=== PATIENT | female | born 1995 | race African-American/Black ===

== ENCOUNTER 2017-05-10 08:56 | Emergency (ER) | payer BC ==
[~2017-05-10] VITALS: Ht 170.2 cm; Wt 68.0 kg
[2017-05-10 08:56] VITALS: BP_SYST 148
[2017-05-10] MEDS ORDERED: KETOROLAC TROMETHAMINE 60 MG/2 ML VIAL IM ONE (09:45)
[2017-05-10] MEDS ORDERED: ONDANSETRON 4 MG ODT TAB PO ONE (09:45)
[2017-05-10 11:10] LABS: BILIRUBIN,URINE NEGATIVE (NEGATIVE); BLOOD, URINE 3+ (NEGATIVE); CLARITY/URINE SL HAZY (CLEAR); COLOR,URINE YELLOW (YELLOW); GLUCOSE,URINE NEGATIVE (NEGATIVE); KETONES,URINE TRACE (NEGATIVE); LEUKOCYTE ESTERASE ,URINE NEGATIVE (NEGATIVE); NITRITE, URINE NEGATIVE (NEGATIVE); PROTEIN URINE 1+ (NEGATIVE); UROBILINOGEN,URINE 0.2 (0.2-1.0)
[2017-05-10 11:20] LABS: BACTERIA,URINE MODERATE /HPF (None Seen); MUCUS,URINE 1+ /LPF (None Seen); RBC,URINE 50-80 /HPF (0-3); WBC,URINE 0-3 /HPF (0-3)
[2017-05-10 11:37] VITALS: BP_SYST 135
== END 2017-05-10 11:37 | disposition home or self-care (01) ==
LOC: SED 08:56
DX: N23 Unspecified renal colic (principal)
CPT/HCPCS: 81000; 81025; 87086; 96372; 99284; J1885; Q0162